=== PATIENT | male | born 1995 | race Caucasian/White ===

== ENCOUNTER 2016-10-28 18:34 | Emergency (ER) | payer BC ==
[2016-10-28 19:56] VITALS: BP 152/61
== END 2016-10-28 19:56 | disposition home or self-care (01) ==
LOC: ED 18:34
DX: S61.214A Laceration without foreign body of right ring finger without damage to nail, initial encounter (principal); W23.0XXA Caught, crushed, jammed, or pinched between moving objects, initial encounter; Y93.89 Activity, other specified; Y99.8 Other external cause status; Y92.89 Other specified places as the place of occurrence of the external cause